=== PATIENT | female | born 1995 | race Caucasian/White ===

== ENCOUNTER → 2020-10-12 13:10 | Outpatient (BNVA) | payer BC, MEDICAID, SELFPAY | PROVIDERS: Visit Provider Nurse Practitioner Women's Health | DX: N92.6 Irregular menstruation, unspecified (principal); Z32.01 Encounter for pregnancy test, result positive; Z78.9 Other specified health status | CPT/HCPCS: 81025; 84702 ==

== ENCOUNTER → 2020-11-23 14:22 | Outpatient (BNVA) | payer BC, MEDICAID, SELFPAY | PROVIDERS: Visit Provider Nurse Practitioner Family | DX: N92.6 Irregular menstruation, unspecified (principal); M25.569 Pain in unspecified knee; M22.2X2 Patellofemoral disorders, left knee; M25.562 Pain in left knee; G89.29 Other chronic pain | CPT/HCPCS: 84702 ==

== ENCOUNTER → 2025-04-19 08:56 | Outpatient (BNVA) | payer BC, MEDICAID, SELFPAY | PROVIDERS: Visit Provider Clinical Nurse Specialist Adult Health | DX: R73.9 Hyperglycemia, unspecified (principal); M94.0 Chondrocostal junction syndrome [Tietze]; R68.89 Other general symptoms and signs; R63.5 Abnormal weight gain | CPT/HCPCS: 80053; 80061; 82306; 83036; 84443; 85025 ==